=== PATIENT | female | born 1935 | race Caucasian/White ===

== ENCOUNTER 2017-05-04 11:00 | Inpatient (IN) | payer MEDICARE, BC ==
[~2017-05-04] VITALS: Ht 160 cm; Wt 71.2 kg
--- NOTE | ~2017-05-04 | DS ---
[facility] 81 Y [address] ROOM: [place] [address] LOCATION: [facility] ADMIT DATE: 05/19/2017 Discharge Summary DISCHARGE DATE: 05/22/2017 FAMILY PHYSICIAN: Jovany Chou MD ATTENDING PHYSICIAN: Arian Joe PRIMARY DIAGNOSIS: Degenerative joint disease of the right knee. SECONDARY DIAGNOSES: 1. Gastroesophageal reflux disease. 2. Hyperlipidemia. 3. Hypothyroidism. 4. Osteoporosis. 5. Peripheral neuropathy. 6. History of pulmonary embolism. 7. History of deep vein thrombosis. PROCEDURE PERFORMED: Right total knee arthroplasty with computer navigation. HISTORY: The patient is an 81-year-old female, who presents with advanced right knee degenerative joint disease and associated severely compromised activities of daily living. The patient has decided to proceed with total knee arthroplasty after having been thoroughly counseled regarding the risks, benefits, limitations, and alternatives. Please refer to the outpatient clinic notes and admission history and physical for this patient. HOSPITAL COURSE: The patient underwent a right total knee arthroplasty on 05/19/2017 without complications. Spinal anesthesia plus adductor canal block plus periarticular local anesthesia was utilized. The patient received 24 hours of perioperative prophylactic antibiotics and remained hemodynamically stable, neurovascularly intact throughout the entire hospital course. The postoperative prophylactic deep venous thrombosis prophylaxis consisted of routine daily dose of warfarin, early mobilization and pneumatic compression devices. Daily physical therapy for gait training, transfer training, range of motion, and quadriceps isometric exercises were received. The patient progressed well in physical therapy. On the date of discharge, 05/22/2017, the incision at the knee was healing well and showed no signs of infection. DISPOSITION: Home. DISCHARGE ACTIVITY: The patient is to bear weight as tolerated with range of motion and quadriceps isometric exercises as instructed. The operative extremity is to be elevated at least 90% of the day. There is to be sterile 4x4 gauze dressings to the incision daily. Dr. Joe is to be notified immediately if there is any increased pain, fevers, chills, erythema, or [facility] AGE: 81 Y [address] ROOM: [place] [address] LOCATION: [facility] ADMIT DATE: 05/19/2017 Discharge Summary DISCHARGE DATE: 05/22/2017 FAMILY PHYSICIAN: Jovany Chou MD ATTENDING PHYSICIAN: Arian Joe. DISCHARGE MEDICATIONS: Include, 1. Warfarin. The patient is to return on her routine daily dose of warfarin under the care and management of her primary care physician. 2. Tramadol 50 mg, take 1 tablet p.o. b.i.d. p.r.n. pain. 3. Lovenox 30 mg subcutaneously b.i.d. (she is to discontinue this medication when her INR is greater than or equal to 2.0). FOLLOWUP: Followup date is scheduled for 05/26/2017 for initial postoperative evaluation and x-rays at that time. NIRANJAN MILLER FOR ARIAN JOE MD TLB/modl /[id number] d: 06/04/17 0213 t: 06/09/17 1539, DISCHARGE SUMMARY
--- NOTE | ~2017-05-04 | OR ---
[facility] 81 Y [address] ROOM: [place] [address] LOCATION: [facility] ADMIT DATE: 05/19/2017 OR/Procedure Report DISCHARGE DATE: FAMILY PHYSICIAN: Jovany Chou MD ATTENDING PHYSICIAN: ARIAN JOE SURGEON: Arian Joe MD FINANCIAL PROFESSIONAL: Kvng White CST/[place] and Arian Romano. DATE OF PROCEDURE: 05/19/2017 PRE-OP DIAGNOSIS: Degenerative joint disease, right knee. POST-OP DIAGNOSIS: Degenerative joint disease, right knee. OPERATION: Right total knee arthroplasty with computer navigation. ANESTHESIA: Spinal anesthesia plus adductor canal block plus periarticular local anesthesia (ropivacaine with epinephrine and Toradol). ESTIMATED BLOOD LOSS: Less than 10 mL. DRAIN: None. SPECIMEN: None. COMPLICATIONS: None. IMPLANT SYSTEM: [employer] Triathlon: 1. Size 4 right posterior stabilized femoral component. 2. Size 3 universal modular tibial baseplate. 3. 11 mm, posterior stabilized, size 3 X3 tibial polyethylene insert. 4. 32 mm oval X3 patella component. INDICATIONS FOR SURGERY: Yaneli Crocker is an 81-year-old female who presents with advanced right knee degenerative joint disease and associated severely compromised activities of daily living. The patient has decided to proceed with knee replacement after having been thoroughly counseled regarding the associated risks, benefits, and limitations. We have specifically reviewed the risks and implications of infection, deep venous thrombosis, pulmonary embolism, mortality, neurovascular complications, blood transfusion (and associated potential for disease transmission or transfusion reaction), stiffness, instability, mechanical deterioration of the components (due to wear and or loosening), and the potential need for revision. We have also emphasized the importance of active involvement and compliance with post- operative physical therapy as a means of optimizing range of motion and [facility]: 81 Y [address] ROOM: [place] [address] LOCATION: [facility] ADMIT DATE: 05/19/2017 OR/Procedure Report DISCHARGE DATE: FAMILY PHYSICIAN: Jovany Chou MD ATTENDING PHYSICIAN: ARIAN JOE functional recovery. Informed consent has been granted. DESCRIPTION OF PROCEDURE: The patient was positioned supine after administration of anesthesia and prophylactic antibiotics. A well-padded pneumatic tourniquet was placed around the right proximal thigh, and the right lower extremity was prepped and draped with vigilant sterile technique. The patient's name as well as the intended operative side and procedure were confirmed with a verbal time-out involving myself, the circulating nurse, the scrub nurse, and the anesthesiologist. Examination under anesthesia demonstrated a large effusion. There was no erythema. There was no abnormal warmth. There were well-healed inferomedial and inferolateral arthroscopy portal scars. There were no active skin lesions or masses. Range of motion under anesthesia was from full extension to 130 degrees of flexion. There was no ligamentous insufficiency. The right lower extremity was elevated and exsanguinated with an Esmarch wrap, and the pneumatic tourniquet was inflated to 300mmHg. The knee was approached through a longitudinal midline incision. A medial parapatellar arthrotomy was performed and the patella was everted. Examination of the joint space demonstrated a large amount of benign-appearing translucent synovial fluid. There were no loose bodies. There was no synovitis. The cruciate ligaments were intact. There were mild grade 2 degenerative changes at the medial facet of the patella. There was partial-thickness fissuring of the articular cartilage at the apex of the patella. There were small osteophytes at the medial aspect of the femoral trochlea as well as the medial femoral condyle. There was a very small osteophyte at the lateral femoral condyle. There was high-grade partial-thickness articular cartilage loss involving the central 2 cm diameter region of the lateral tibial plateau. There was a 1.5 cm diameter region of high-grade partial-thickness articular cartilage loss at the posteromedial aspect of the lateral femoral condyle. There was a 1.5 cm diameter region of full-thickness articular cartilage loss at the medial aspect of the medial tibial plateau. There was full-thickness loss of articular cartilage involving approximately 50% of the medial femoral condyle. There was high-grade partial-thickness articular cartilage loss throughout the remainder of the medial femoral condyle. There was a complex degenerative tearing of the medial meniscus. There was mild inner perimeter tearing of the lateral meniscus. There was rather significant generalized osteopenia. Remnants of the menisci and cruciate ligaments were excised. The [employer] navigation femoral tracker was pinned in place at the distal aspect of the femoral trochlea. Absence of motion between the femur and the tracking device was confirmed manually and visually. Femoral osseous landmarks were obtained in order to calibrate the computer navigation system. Landmarks PATIENT'S NAME: YANELI CROCKER [facility] AGE: 81 Y [address] ROOM: [address] [address] LOCATION: [facility] ADMIT DATE: 05/19/2017 OR/Procedure Report DISCHARGE DATE: FAMILY PHYSICIAN: Jovany Chou MD ATTENDING PHYSICIAN: ARIAN JOE included the center of rotation of the ipsilateral hip, the center-point of the distal femur, the femoral AP axis, 57 points on the medial femoral condyle articular surface, and 57 points on the lateral femoral condyle articular surface. The [employer] computer navigation system was subsequently utilized to position the distal femoral resection block such that the distal femoral resection was performed perfectly perpendicular to the femoral mechanical axis. The distal femoral resection was performed with a [employer] oscillating saw. The [employer] computer navigation tibial tracker was pinned in place at the anterior aspect of the tibial plateau. Absence of motion between the tibia and the tracking device was confirmed manually and visually. Tibial osseous landmarks were obtained in order to calibrate the computer navigation system. Landmarks included the center-point of the tibial plateau, the AP tibial axis, 57 points on the medial tibial plateau articular surface, 57 points on the lateral tibial plateau articular surface, the medial malleolus, and the lateral malleolus. The [employer] computer navigation system was subsequently utilized to position the proximal tibial resection block such that the proximal tibial resection was performed perfectly perpendicular to the tibial mechanical axis. The proximal tibial resection was performed with a [employer] Precision oscillating saw. Perpendicularity of the tibial resection with respect to the tibial shaft axis was reconfirmed by inserting a spacer- block attached to an extramedullary guide abigail. External rotation of the anterior and posterior femoral resections was set parallel to the epicondylar axis and carefully adjusted in order to create a rectangular flexion gap. The box resection was performed with a reciprocating saw. Anterior and posterior chamfer resections were performed with the oscillating saw. Posterior condyle osteophytes were excised with an osteotome. All other osteophytes were excised with a rongeur. Resection of all remnants of the menisci was reconfirmed. Flexion and extension gaps were confirmed to be symmetric and well balanced with a spacer-block technique. The patella resection was performed with an oscillating saw such that the composite thickness of the reconstructed patella was equivalent to the thickness of the paiute-shoshone patella. Patella tracking was optimal, and there was no need for a lateral retinacular release. All trial components were removed and all prepared osseous surfaces were thoroughly irrigated with pulsatile saline lavage and dried prior to cementing all three components in a single stage using [employer] Simplex cement containing pre-mixed tobramycin. All extruded excess cement was removed. The entire joint space was thoroughly inspected and thoroughly irrigated with bacteriostatic pulsatile saline lavage to assure that there was no residual debris of any sort. PATIENT'S NAME: YANELI CROCKER [facility] AGE: 81 Y [address] ROOM: [address] [address] LOCATION: [facility] ADMIT DATE: 05/19/2017 OR/Procedure Report DISCHARGE DATE: FAMILY PHYSICIAN: Jovany Chou MD ATTENDING PHYSICIAN: ARIAN JOE Final range of motion was from full extension (with no passive hyperextension) to 130 degrees of flexion. Patella tracking was reconfirmed to be optimal. There was excellent anteroposterior stability at 90 degrees of flexion. There was 0 mm of medial lift-off to valgus stress in full extension. There was 1 mm of lateral lift-off to varus stress in full extension. The arthrotomy was closed with multiple simple and misida-ah-gcnun interrupted #1 Vicryl. Subcutaneous tissues were thoroughly re-irrigated with bacteriostatic pulsatile saline lavage. Subcutaneous tissues were re- approximated with simple buried interrupted #0 Vicryl sutures. The skin was closed with simple buried interrupted 2-0 Vicryl sutures followed by surgical michelle. The dressing consisted of Xeroform gauze, 4x4 gauze, ABD pads and two 6-inch Tyler Wraps. There were no intra-operative complications. MD CHRISTINA BONILLA/krystin /[id number] d: 05/19/1755 t: 05/19/17 1035, OPERATIVE SUMMARY
[~2017-05-04 11:00] MED LIST: AMBIEN10 MG PO; CALCIUM 500 MG1 EACH PO; CLINDAMYCIN HC300 MG PO; COUMADIN ** IA5 MG PO; IRON65 PO; LEVOTHROID(SYN75 MCG PO; LYRICA 50MG CAP50 MG PO; PEPCID20 MG PO; PROPRANOLOL HCL60 M1 PO; REMERON15 MG PO; THERA-VITE W/ B1 TAB PO; ULTRAM50 MG PO; VITAMIN B-12500 MCG PO; VOLTAREN 1% GE100 GM TOP
--- NOTE | 2017-05-19 12:00 | NUR ---
Met with patient and daughters in room. Patient attended the preop joint class. Plans to have help from her daughter's when she returns home to [place] where she lives in a one level home with her spouse. Has 2 steps to get in home with railing on left side. Reports she has a walker, cane, machine grinder, walk in shower and tall toilet. Will follow and assist as needed.
--- NOTE | 2017-05-19 16:10 | NUR ---
patient doing well. returned at 1015 to 3N. csm-wiggles toes, weak movement, dull sensation at 1600. voided large amt. norberto wrap dressing d/i. nucynta last at 1545. visits with family. patient has difficulty swallowing large pills, crush in pudding or applesauce.
[2017-05-20 06:10] LABS: INR - (THERAPEUTIC) 1.16 (0.92-1.07); PROTIME 12.2 SECONDS (9.8-11.4)
--- NOTE | 2017-05-20 07:38 | NUR ---
Significant Event: Dressing is clean, dry and intact. CSM WNL. 2 assist with transfers. Voids without difficulty. Nucynta at 0428. Valium 2.5mg at 0551. Crush pills. Follow up:
--- NOTE | 2017-05-20 13:07 | NUR ---
Significant Event: AOx3. VSS. CSM WNL. R)knee dressing is C/D/I. Crush pills in applesauce. Nucynta given for pain. Up with 1 assist with walker. Patient may go home tomorrow or [place]. Follow up:
--- NOTE | 2017-05-20 17:05 | NUR ---
SPOKE TO PATIENT'S DAUGHTER MAU SHE WOULD LIKE FOR HER MOM TO HAVE HHC ONCE SHE IS DISCHARGE HOME, TO DO INR. I MEET WITH [facility] AND INTRODUCED [place] AND OUR ROLE. PATIENT LIVES IN ON HOME WITH SPOUSE AND IS PLANNING ON RETURNING HOME WITH HELP FROM HER FAMILY. AND SHE AGREES TO HAVING HHC. SHE WOULD LIKE HHC THROUGH [facility] [place]. PLACED A FACE TO FACE SHEET ON THE CHART.
--- NOTE | 2017-05-21 03:32 | NUR ---
Pt is AOX3. VSS. Pt up with 1 asssist gaitbelt walker. CSMs intact. Dressing clean dry and intact. Pain controlled with nucynta. Pt requested suppository, pt received and had a small bm. Pt occasionly forgetful. FRANCISCO, w/ hearing aids.
[2017-05-21 06:08] LABS: PROTIME 15.2 SECONDS (9.8-11.4)
[2017-05-21 06:12] LABS: INR - (THERAPEUTIC) 1.44 (0.92-1.07)
--- NOTE | 2017-05-21 12:50 | NUR ---
ATTEMPTED TO ARRANGE HHC WITH [facility] ([phone]) HAD TO LEAVE A MESSAGE ON VOICE MAIL FOR SOMEONE TO CONTACT ME.
--- NOTE | 2017-05-21 14:08 | NUR ---
RECEIVED CALL FROM [facility] WITH [facility]. SHE WOULD LIKE FOR ME TO FAX INFO TO HER THEY WILL PLAN ON SEEING PATIENT ON THURSDAY.
--- NOTE | 2017-05-21 17:13 | NUR ---
Significant Event: Pt is a/o. Cooperative with cares. Up in chair and amb to BR with walker, gaitbelt and 1 assist. Dressing changed after shower. Gauze/tubigrip. Ralph hose & EZ wrap on. Plans on discharge tomorrow with home health. Needs encouragement to take pain pills. Needs larger meds crushed. Evelio huang @ 4957. Follow up:
--- NOTE | 2017-05-22 04:43 | NUR ---
Significant Event: CSM WNL. Voids without difficulty. 1 assist with transfers. Nucynta last at 0136. To go home today with home health. Crush medications and place in applesauce. Follow up:
[2017-05-22 05:04] LABS: INR - (THERAPEUTIC) 1.66 (0.92-1.07); PROTIME 17.5 SECONDS (9.8-11.4)
[2017-05-22] MEDS ORDERED: VALIUM5 MG PO (10:24)
[2017-05-22] MEDS ORDERED: NUCYNTA50 MG PO (10:26)
[2017-05-22] MEDS ORDERED: TYLENOL EXTRA500 MG PO (10:27)
--- NOTE | 2017-05-22 10:27 | NUR ---
RECEIVED REFERRAL THAT PATIENT CAN BE DISCHARGE HOME TODAY AND WILL NEED TO HAVE HHC AND WILL NEED INR DRAWN ON THURSDAY. I NOTIFIED THE [facility] AND SPOKE TO GABRIEL THEY WILL PLAN ON SEEING PATIENT ON THURSDAY. WILL FAX ORDERS TO HER ONCE THEY ARE COMPLETED.
[2017-05-22] MEDS ORDERED: LOVENOX 3030 MG/0.3 SUB-Q (10:30)
[2017-05-22] MEDS ORDERED: MILK OF MA400 MG/5 M PO (10:37)
--- NOTE | 2017-05-22 10:44 | NUR ---
ORDERS COMPLETED AND FAXED TO GABRIEL AT [facility] ([phone]).
--- NOTE | 2017-05-22 13:39 | NUR ---
Patient was AOx3. VSS. CSM WNL. Dressing was changed this morning by Jereym Wilhelm. INR was 1.66 this a.m. Patient was set up with [facility] for blood draw for INR on Thursday. Daughter and patient had no questions or concerns about discharge instructions. Patient was wheeled out by transport to [facility] for dismissal to home at 1345.
== END 2017-05-22 13:42 | disposition disaster alternative care site (69) | DRG 470 ==
LOC: G3N 05-19 05:20
PROVIDERS: ADMIT Orthopaedic Surgery
PROC: 0SRC0J9 Replacement of Right Knee Joint with Synthetic Substitute, Cemented, Open Approach (ICD-10-PCS; principal; 2017-05-19)
DX: M17.11 Unilateral primary osteoarthritis, right knee (principal); E78.5 Hyperlipidemia, unspecified; M79.7 Fibromyalgia; R79.1 Abnormal coagulation profile; K21.9 Gastro-esophageal reflux disease without esophagitis; G60.9 Hereditary and idiopathic neuropathy, unspecified; R00.0 Tachycardia, unspecified; K59.00 Constipation, unspecified; Z79.01 Long term (current) use of anticoagulants; Z86.718 Personal history of other venous thrombosis and embolism
CPT/HCPCS: C1713; C1776; J0131; J1100; J1170; J1650; J1885; J2001; J2250; J2405; J2795; J7120

== ENCOUNTER → 2017-05-07 | Outpatient (CLI) | payer MEDICARE, BC ==
[~2017-05-07] MED LIST changes: +LOVENOX 3030 MG/0.3 SUB-Q; +MILK OF MA400 MG/5 M PO; +NUCYNTA50 MG PO; +TYLENOL EXTRA500 MG PO; +VALIUM5 MG PO
== END | disposition disaster alternative care site (69) ==
LOC: GNJRC 10:23
DX: Z01.812 Encounter for preprocedural laboratory examination (principal); M17.11 Unilateral primary osteoarthritis, right knee

== ENCOUNTER → 2017-05-18 | Outpatient (CLI) | payer MEDICARE, BC ==
[2017-05-18 17:12] LABS: INR - (THERAPEUTIC) 1.01 (0.92-1.07); PROTIME 10.6 SECONDS (9.8-11.4)
== END | disposition disaster alternative care site (69) ==
LOC: LGSMG 16:40
PROVIDERS: Orthopaedic Surgery
DX: M25.569 Pain in unspecified knee (principal)